=== PATIENT | male | born 1955 | race Caucasian/White ===

== ENCOUNTER 2021-05-11 10:12 | Outpatient (CLI) | payer MEDICARE | END 2021-05-11 10:13 | disposition home or self-care (01) | LOC: CSHWCC 10:12 | PROVIDERS: ATTEND Nurse Practitioner Family | DX: L98.499 Non-pressure chronic ulcer of skin of other sites with unspecified severity (principal); I11.0 Hypertensive heart disease with heart failure; I50.9 Heart failure, unspecified; I25.10 Atherosclerotic heart disease of native coronary artery without angina pectoris; I25.84 Coronary atherosclerosis due to calcified coronary lesion; I42.9 Cardiomyopathy, unspecified; I46.2 Cardiac arrest due to underlying cardiac condition; G90.09 Other idiopathic peripheral autonomic neuropathy; L84 Corns and callosities | CPT/HCPCS: 11042; 97139; G0463; 99202 ==

== ENCOUNTER 2021-05-19 08:34 | Outpatient (CLI) | payer MEDICARE | END 2021-05-19 08:35 | disposition home or self-care (01) | LOC: CSHWCC 08:34 | PROVIDERS: ATTEND Nurse Practitioner Family | DX: L98.499 Non-pressure chronic ulcer of skin of other sites with unspecified severity (principal); L84 Corns and callosities; G90.09 Other idiopathic peripheral autonomic neuropathy; I11.0 Hypertensive heart disease with heart failure; I50.9 Heart failure, unspecified; I25.84 Coronary atherosclerosis due to calcified coronary lesion; I42.9 Cardiomyopathy, unspecified; I46.2 Cardiac arrest due to underlying cardiac condition | CPT/HCPCS: 29445; 99213; G0463 ==

== ENCOUNTER 2021-05-25 08:38 | Outpatient (CLI) | payer MEDICARE | END 2021-05-25 08:39 | disposition home or self-care (01) | LOC: CSHWCC 08:38 | PROVIDERS: ATTEND Nurse Practitioner Family | DX: L98.499 Non-pressure chronic ulcer of skin of other sites with unspecified severity (principal); I11.0 Hypertensive heart disease with heart failure; I50.9 Heart failure, unspecified; I25.10 Atherosclerotic heart disease of native coronary artery without angina pectoris; I25.84 Coronary atherosclerosis due to calcified coronary lesion; G90.09 Other idiopathic peripheral autonomic neuropathy; I42.9 Cardiomyopathy, unspecified; I46.2 Cardiac arrest due to underlying cardiac condition; L84 Corns and callosities | CPT/HCPCS: 87070; 87077; 87186; 87205 ==

== ENCOUNTER 2021-06-01 08:56 | Outpatient (CLI) | payer MEDICARE | END 2021-06-01 08:57 | disposition home or self-care (01) | LOC: CSHWCC 08:56 | PROVIDERS: ATTEND Nurse Practitioner Family | DX: L89.893 Pressure ulcer of other site, stage 3 (principal); G90.09 Other idiopathic peripheral autonomic neuropathy; I11.0 Hypertensive heart disease with heart failure; I25.84 Coronary atherosclerosis due to calcified coronary lesion; I42.9 Cardiomyopathy, unspecified; I46.2 Cardiac arrest due to underlying cardiac condition; L84 Corns and callosities; L98.499 Non-pressure chronic ulcer of skin of other sites with unspecified severity ==

== ENCOUNTER 2021-06-08 12:52 | Outpatient (CLI) | payer MEDICARE | END 2021-06-08 12:53 | disposition home or self-care (01) | LOC: CSHWCC 12:52 | PROVIDERS: ATTEND Nurse Practitioner Family | DX: L89.893 Pressure ulcer of other site, stage 3 (principal); L98.499 Non-pressure chronic ulcer of skin of other sites with unspecified severity; I11.0 Hypertensive heart disease with heart failure; I50.9 Heart failure, unspecified; G90.09 Other idiopathic peripheral autonomic neuropathy; I25.84 Coronary atherosclerosis due to calcified coronary lesion; I42.9 Cardiomyopathy, unspecified; I46.2 Cardiac arrest due to underlying cardiac condition; L84 Corns and callosities ==

== ENCOUNTER 2021-06-15 09:12 | Outpatient (CLI) | payer MEDICARE | END 2021-06-15 09:13 | disposition home or self-care (01) | LOC: CSHWCC 09:12 | PROVIDERS: ATTEND Nurse Practitioner Family | DX: L89.893 Pressure ulcer of other site, stage 3 (principal); L98.499 Non-pressure chronic ulcer of skin of other sites with unspecified severity; L84 Corns and callosities; G90.09 Other idiopathic peripheral autonomic neuropathy; I11.0 Hypertensive heart disease with heart failure; I50.9 Heart failure, unspecified; I25.84 Coronary atherosclerosis due to calcified coronary lesion; I42.9 Cardiomyopathy, unspecified; I46.2 Cardiac arrest due to underlying cardiac condition ==

== ENCOUNTER 2021-06-21 14:40 | Outpatient (CLI) | payer MEDICARE | END 2021-06-21 14:41 | disposition home or self-care (01) | LOC: CSHWCC 14:40 | PROVIDERS: ATTEND Nurse Practitioner Family | DX: L98.499 Non-pressure chronic ulcer of skin of other sites with unspecified severity (principal); G90.09 Other idiopathic peripheral autonomic neuropathy; I11.0 Hypertensive heart disease with heart failure; I50.9 Heart failure, unspecified; I25.84 Coronary atherosclerosis due to calcified coronary lesion; I42.9 Cardiomyopathy, unspecified; I46.2 Cardiac arrest due to underlying cardiac condition; L84 Corns and callosities | CPT/HCPCS: 11042; 97139; G0463; 99212 ==

== ENCOUNTER 2021-06-28 13:24 | Outpatient (CLI) | payer MEDICARE | END 2021-06-28 13:25 | disposition home or self-care (01) | LOC: CSHWCC 13:24 | PROVIDERS: ATTEND Nurse Practitioner Family | DX: L98.499 Non-pressure chronic ulcer of skin of other sites with unspecified severity (principal); I11.0 Hypertensive heart disease with heart failure; I25.84 Coronary atherosclerosis due to calcified coronary lesion; I50.9 Heart failure, unspecified; I42.9 Cardiomyopathy, unspecified; I46.2 Cardiac arrest due to underlying cardiac condition; L84 Corns and callosities; G90.09 Other idiopathic peripheral autonomic neuropathy | CPT/HCPCS: 29445 ==

== ENCOUNTER 2021-07-05 08:20 | Outpatient (CLI) | payer MEDICARE | END 2021-07-05 08:21 | disposition home or self-care (01) | LOC: CSHWCC 08:20 | PROVIDERS: ATTEND Nurse Practitioner Family | DX: L98.499 Non-pressure chronic ulcer of skin of other sites with unspecified severity (principal); G90.09 Other idiopathic peripheral autonomic neuropathy; I11.0 Hypertensive heart disease with heart failure; I25.84 Coronary atherosclerosis due to calcified coronary lesion; I42.9 Cardiomyopathy, unspecified; I46.2 Cardiac arrest due to underlying cardiac condition; L84 Corns and callosities ==

== ENCOUNTER 2021-07-19 08:41 | Outpatient (CLI) | payer MEDICARE | END 2021-07-19 08:42 | disposition home or self-care (01) | LOC: CSHWCC 08:41 | PROVIDERS: ATTEND Nurse Practitioner Family | DX: E11.621 Type 2 diabetes mellitus with foot ulcer (principal); L97.402 Non-pressure chronic ulcer of unspecified heel and midfoot with fat layer exposed; E11.43 Type 2 diabetes mellitus with diabetic autonomic (poly)neuropathy; I11.0 Hypertensive heart disease with heart failure; I50.9 Heart failure, unspecified; I25.10 Atherosclerotic heart disease of native coronary artery without angina pectoris; I25.84 Coronary atherosclerosis due to calcified coronary lesion; I42.9 Cardiomyopathy, unspecified; I46.2 Cardiac arrest due to underlying cardiac condition; L84 Corns and callosities | CPT/HCPCS: 99212; G0463 ==

== ENCOUNTER 2021-07-22 08:22 | Outpatient (CLI) | payer MEDICARE | END 2021-07-22 08:23 | disposition home or self-care (01) | LOC: CSHWCC 08:22 | PROVIDERS: ATTEND Nurse Practitioner Family | DX: E11.621 Type 2 diabetes mellitus with foot ulcer (principal); L97.402 Non-pressure chronic ulcer of unspecified heel and midfoot with fat layer exposed; E11.43 Type 2 diabetes mellitus with diabetic autonomic (poly)neuropathy; I11.0 Hypertensive heart disease with heart failure; I50.9 Heart failure, unspecified; I25.10 Atherosclerotic heart disease of native coronary artery without angina pectoris; I25.84 Coronary atherosclerosis due to calcified coronary lesion; I42.9 Cardiomyopathy, unspecified; I46.2 Cardiac arrest due to underlying cardiac condition; L84 Corns and callosities ==

== ENCOUNTER 2021-07-29 09:53 | Outpatient (CLI) | payer MEDICARE | END 2021-07-29 09:54 | disposition home or self-care (01) | LOC: CSHWCC 09:53 | PROVIDERS: ATTEND Nurse Practitioner Family | DX: L97.419 Non-pressure chronic ulcer of right heel and midfoot with unspecified severity (principal) | CPT/HCPCS: 29445; 97139; G0463; 99212 ==

== ENCOUNTER 2021-08-02 07:56 | Outpatient (CLI) | payer MEDICARE | END 2021-08-02 07:57 | disposition home or self-care (01) | LOC: CSHWCC 07:56 | PROVIDERS: ATTEND Nurse Practitioner Family | DX: E11.621 Type 2 diabetes mellitus with foot ulcer (principal); L97.402 Non-pressure chronic ulcer of unspecified heel and midfoot with fat layer exposed; E11.43 Type 2 diabetes mellitus with diabetic autonomic (poly)neuropathy; I11.0 Hypertensive heart disease with heart failure; I50.9 Heart failure, unspecified; I25.10 Atherosclerotic heart disease of native coronary artery without angina pectoris; I25.84 Coronary atherosclerosis due to calcified coronary lesion; I42.9 Cardiomyopathy, unspecified; I46.2 Cardiac arrest due to underlying cardiac condition; L84 Corns and callosities ==

== ENCOUNTER 2021-08-08 08:09 | Outpatient (CLI) | payer MEDICARE | END 2021-08-08 08:10 | disposition home or self-care (01) | LOC: CSHWCC 08:09 | PROVIDERS: ATTEND Nurse Practitioner Family | DX: L97.419 Non-pressure chronic ulcer of right heel and midfoot with unspecified severity (principal) | CPT/HCPCS: 99212; G0463 ==

== ENCOUNTER 2021-08-22 08:04 | Outpatient (CLI) | payer MEDICARE | END 2021-08-22 08:05 | disposition home or self-care (01) | LOC: CSHWCC 08:04 | PROVIDERS: ATTEND Nurse Practitioner Family | DX: L97.402 Non-pressure chronic ulcer of unspecified heel and midfoot with fat layer exposed (principal) ==

== ENCOUNTER 2022-01-19 14:13 | Outpatient (CLI) | payer MEDICARE | END 2022-01-19 14:14 | disposition home or self-care (01) | LOC: CSHWCC 14:13 | PROVIDERS: ATTEND Nurse Practitioner Family | DX: E11.621 Type 2 diabetes mellitus with foot ulcer (principal); L97.412 Non-pressure chronic ulcer of right heel and midfoot with fat layer exposed | CPT/HCPCS: 87070; 87077; 87186; 87205; 97139; G0463; 99212 ==

== ENCOUNTER 2022-01-25 13:30 | Outpatient (CLI) | payer MEDICARE | END 2022-01-25 13:31 | disposition home or self-care (01) | LOC: CSHWCC 13:30 | PROVIDERS: ATTEND Nurse Practitioner Family | DX: E11.621 Type 2 diabetes mellitus with foot ulcer (principal); L97.412 Non-pressure chronic ulcer of right heel and midfoot with fat layer exposed ==

== ENCOUNTER 2022-02-01 08:27 | Outpatient (CLI) | payer MEDICARE | END 2022-02-01 08:28 | disposition home or self-care (01) | LOC: CSHWCC 08:27 | PROVIDERS: ATTEND Nurse Practitioner Family | DX: E11.621 Type 2 diabetes mellitus with foot ulcer (principal); L97.412 Non-pressure chronic ulcer of right heel and midfoot with fat layer exposed ==

== ENCOUNTER 2022-02-08 08:44 | Outpatient (CLI) | payer MEDICARE | END 2022-02-08 08:45 | disposition home or self-care (01) | LOC: CSHWCC 08:44 | PROVIDERS: ATTEND Nurse Practitioner Family | DX: E11.621 Type 2 diabetes mellitus with foot ulcer (principal); L97.412 Non-pressure chronic ulcer of right heel and midfoot with fat layer exposed ==

== ENCOUNTER 2022-02-15 09:13 | Outpatient (CLI) | payer MEDICARE | END 2022-02-15 09:14 | disposition home or self-care (01) | LOC: CSHWCC 09:13 | PROVIDERS: ATTEND Nurse Practitioner Family | DX: E11.621 Type 2 diabetes mellitus with foot ulcer (principal); L97.412 Non-pressure chronic ulcer of right heel and midfoot with fat layer exposed ==

== ENCOUNTER 2022-10-09 08:59 | Outpatient (CLI) | payer MEDICARE | END 2022-10-09 09:00 | disposition home or self-care (01) | LOC: CSHWCC 08:59 | PROVIDERS: ATTEND Nurse Practitioner Family | DX: E11.621 Type 2 diabetes mellitus with foot ulcer (principal); L97.412 Non-pressure chronic ulcer of right heel and midfoot with fat layer exposed ==

== ENCOUNTER 2022-10-16 10:50 | Outpatient (CLI) | payer MEDICARE | END 2022-10-16 10:51 | disposition home or self-care (01) | LOC: CSHWCC 10:50 | PROVIDERS: ATTEND Nurse Practitioner Family | DX: E11.621 Type 2 diabetes mellitus with foot ulcer (principal); L97.412 Non-pressure chronic ulcer of right heel and midfoot with fat layer exposed | CPT/HCPCS: 29445 ==

== ENCOUNTER 2022-10-23 09:55 | Outpatient (CLI) | payer MEDICARE | END 2022-10-23 09:56 | disposition home or self-care (01) | LOC: CSHWCC 09:55 | PROVIDERS: ATTEND Nurse Practitioner Family | DX: E11.621 Type 2 diabetes mellitus with foot ulcer (principal); L97.412 Non-pressure chronic ulcer of right heel and midfoot with fat layer exposed ==

== ENCOUNTER 2022-10-30 09:16 | Outpatient (CLI) | payer MEDICARE | END 2022-10-30 09:17 | disposition home or self-care (01) | LOC: CSHWCC 09:16 | PROVIDERS: ATTEND Nurse Practitioner Family | DX: L97.412 Non-pressure chronic ulcer of right heel and midfoot with fat layer exposed (principal) ==

== ENCOUNTER 2022-11-06 08:03 | Outpatient (CLI) | payer MEDICARE | END 2022-11-06 08:04 | disposition home or self-care (01) | LOC: CSHWCC 08:03 | PROVIDERS: ATTEND Nurse Practitioner Family | DX: L97.412 Non-pressure chronic ulcer of right heel and midfoot with fat layer exposed (principal) | CPT/HCPCS: 29445 ==

== ENCOUNTER 2022-12-06 08:05 | Outpatient (CLI) | payer MEDICARE | END 2022-12-06 08:06 | disposition home or self-care (01) | LOC: CSHWCC 08:05 | PROVIDERS: ATTEND Nurse Practitioner Family | DX: L97.412 Non-pressure chronic ulcer of right heel and midfoot with fat layer exposed (principal) | CPT/HCPCS: 97139; G0463; 99212 ==

== ENCOUNTER 2023-11-05 08:45 | Outpatient (CLI) | payer MEDICARE | END 2023-11-05 08:46 | disposition home or self-care (01) | LOC: CSHWCC 08:45 | PROVIDERS: ATTEND Family Medicine | DX: L89.93 Pressure ulcer of unspecified site, stage 3 (principal); G90.09 Other idiopathic peripheral autonomic neuropathy; I73.9 Peripheral vascular disease, unspecified | CPT/HCPCS: 97597 ==

== ENCOUNTER 2023-11-12 10:28 | Outpatient (CLI) | payer MEDICARE | END 2023-11-12 10:29 | disposition home or self-care (01) | LOC: CSHWCC 10:28 | PROVIDERS: ATTEND Nurse Practitioner Family | DX: L89.93 Pressure ulcer of unspecified site, stage 3 (principal); G90.09 Other idiopathic peripheral autonomic neuropathy; I73.9 Peripheral vascular disease, unspecified | CPT/HCPCS: 11042 ==

== ENCOUNTER 2023-11-19 10:23 | Outpatient (CLI) | payer MEDICARE | END 2023-11-19 10:24 | disposition home or self-care (01) | LOC: CSHWCC 10:23 | PROVIDERS: ATTEND Nurse Practitioner Family | DX: L89.93 Pressure ulcer of unspecified site, stage 3 (principal); G90.09 Other idiopathic peripheral autonomic neuropathy; I73.9 Peripheral vascular disease, unspecified | CPT/HCPCS: 11042 ==

== ENCOUNTER 2023-12-24 09:13 | Outpatient (CLI) | payer MEDICARE | END 2023-12-24 09:14 | disposition home or self-care (01) | LOC: CSHWCC 09:13 | PROVIDERS: ATTEND Preventive Medicine Undersea and Hyperbaric Medicine | DX: L89.93 Pressure ulcer of unspecified site, stage 3 (principal); G90.09 Other idiopathic peripheral autonomic neuropathy; I73.9 Peripheral vascular disease, unspecified | CPT/HCPCS: 99212; G0463 ==

== ENCOUNTER 2024-07-07 08:03 | Day surgery (SDC) | payer MEDICARE ==
[2024-07-07] MEDS ORDERED: Nitroglycerin 50 MG/250 ML BOT 0 ML ONE (08:11)
[2024-07-07] MEDS ORDERED: Adenosine 6 mg (2 mL) VIAL ONE (08:11)
[2024-07-07] MEDS ORDERED: Lidocaine 1% (PF) 30 ML VIAL ONE (08:11)
[2024-07-07] MEDS ORDERED: Atropine Sulfate 1 mg/1 ml Vial ONE (08:11)
[2024-07-07] MEDS ORDERED: Heparin 10,000 UNITS/ 10 ML VIAL ONE (08:11)
[2024-07-07] MEDS ORDERED: Midazolam HCl 2 mg/2 ml Vial ONE (08:12)
[2024-07-07] MEDS ORDERED: fentaNYL 50 mcg/mL 1 mL Vial ONE (08:12)
[2024-07-07 08:56] LABS: #Basophils 0.05 10x3/uL (0.0-0.2); #Eosinophils 0.13 10x3/uL (0.0-0.5); #Monocytes 0.85 10x3/uL (0.0-1.1); #Neutrophils 6.25 10x3/uL (1.5-8.4); %Basophils 0.6 % (0.0-2.0); %Eosinophils 1.5 % (0.0-6.0); %Lymphocytes 15.7 % (18.0-47.0); %Monocytes 9.8 % (0.0-10.0); %Neutrophils 72.1 % (40.0-75.0); Hematocrit 38.7 % (38.8-50.0); Hemoglobin 11.8 g/dL (13.5-17.5); Mean Corpuscular HGB CONC 30.5 g/dL (32.0-36.0); Mean Corpuscular Hemoglobin 27.6 pg (27.0-33.0); Mean Corpuscular Volume 90.6 fL (81.2-95.1); Mean Platelet Volume 8.8 fL (7.4-10.4); Platelet Count 372 10x3/uL (150-450); RBC Distribution Width 15.2 % (11.5-14.5); Red Blood Cell (RBC) Count 4.27 10x6/uL (4.32-5.72); White Blood Cell (WBC) Count 8.7 10x3/uL (3.5-10.5)
[2024-07-07] MEDS ORDERED: Aspirin Chewable 81 MG TAB ONE (09:04)
[2024-07-07 09:07] LABS: INR-International Normal Ratio 1.2; PTT 31.3 sec (22.0-33.0); Prothrombin Time 12.8 sec (9.5-12.1)
[2024-07-07 09:09] LABS: Anion Gap 16 mmol/L (10-20); BUN (Urea Nitrogen) 16 mg/dL (8.4-25.7); Calc. Creatinine Clearance 0 mL/min (70-130); Carbon Dioxide 22 mmol/L (23-31); Chloride 106 mmol/L (98-107); Estimated GFR 75; Glucose 104 mg/dL (80-115); Potassium 4.1 mmol/L (3.5-5.1); Sodium 140 mmol/L (136-145)
[2024-07-07 09:15] VITALS: BP 187/95; TEMP 97.3
[2024-07-07] MEDS ORDERED: Protamine Sulfate 50 MG/5 ML VIAL ONE (10:17)
[2024-07-07] MEDS ORDERED: hydrALAZINE 20 MG/ML VIAL ONE (10:19)
[2024-07-07] MEDS ORDERED: Iopamidol 300 61% 100 ML VIAL FS ONE (11:24)
== END 2024-07-07 13:05 | disposition home or self-care (01) ==
LOC: CSHSDC 08:03
PROVIDERS: ATTEND Internal Medicine Cardiovascular Disease
PROC: 4A023N7 Measurement of Cardiac Sampling and Pressure, Left Heart, Percutaneous Approach (ICD-10-PCS; principal; 2024-07-07)
DX: I25.10 Atherosclerotic heart disease of native coronary artery without angina pectoris (principal); I42.9 Cardiomyopathy, unspecified; I50.30 Unspecified diastolic (congestive) heart failure; Z88.8 Allergy status to other drugs, medicaments and biological substances
CPT/HCPCS: 71046; 80048; 85025; 85610; 85730; 92978; 93459; C1753; C1760 ×2; C1769; C1887; J0360; J1644; J2250; J2720; J3010; 99152; 99153; J0153; J0461; Q9967

== ENCOUNTER 2025-04-24 08:57 | Outpatient (CLI) | payer MEDICARE | END 2025-04-24 08:58 | disposition home or self-care (01) | LOC: CSHWCC 08:57 | PROVIDERS: ATTEND Nurse Practitioner Family | DX: L89.893 Pressure ulcer of other site, stage 3 (principal); G90.09 Other idiopathic peripheral autonomic neuropathy; I73.9 Peripheral vascular disease, unspecified; I50.22 Chronic systolic (congestive) heart failure | CPT/HCPCS: 11042; 99214; G0463 ==

== ENCOUNTER 2025-04-29 08:30 | Outpatient (CLI) | payer MEDICARE | END 2025-04-29 08:31 | disposition home or self-care (01) | LOC: CSHWCC 08:30 | PROVIDERS: ATTEND Nurse Practitioner Family | DX: L89.893 Pressure ulcer of other site, stage 3 (principal); G90.09 Other idiopathic peripheral autonomic neuropathy; I73.9 Peripheral vascular disease, unspecified; I50.22 Chronic systolic (congestive) heart failure | CPT/HCPCS: 11042 ==

== ENCOUNTER 2025-05-13 10:06 | Outpatient (CLI) | payer MEDICARE | END 2025-05-13 10:07 | disposition home or self-care (01) | LOC: CSHWCC 10:06 | PROVIDERS: ATTEND Nurse Practitioner Family | DX: L89.893 Pressure ulcer of other site, stage 3 (principal); G90.09 Other idiopathic peripheral autonomic neuropathy; I73.9 Peripheral vascular disease, unspecified; I50.22 Chronic systolic (congestive) heart failure | CPT/HCPCS: 29445 ==

== ENCOUNTER 2025-05-20 08:25 | Outpatient (CLI) | payer MEDICARE | END 2025-05-20 08:26 | disposition home or self-care (01) | LOC: CSHWCC 08:25 | PROVIDERS: ATTEND Nurse Practitioner Family | DX: L89.893 Pressure ulcer of other site, stage 3 (principal); G90.09 Other idiopathic peripheral autonomic neuropathy; I73.9 Peripheral vascular disease, unspecified; I50.22 Chronic systolic (congestive) heart failure | CPT/HCPCS: 99213; G0463 ==